=== PATIENT | female | born 1980 | race African-American/Black ===

== ENCOUNTER 2017-10-03 21:59 | Emergency (ER) | payer MEDICAID, OTHER ==
[~2017-10-03] VITALS: Ht 165.1 cm; Wt 93.0 kg
[~2017-10-03 21:59] MED LIST: ASPI-231 PO; ATEN-60 PO; DOCU-94 PO; HYDR50TA15 PO; OMEP20CA74 OR; SEVE800T8 PO; WARF5TAB71 PO
[2017-10-03] MEDS ORDERED: HYDROmorphone HCL 2 MG/ML VL IV ONE (23:45)
[2017-10-03] MEDS ORDERED: ONDANSETRON HCL 4 MG/2 ML VIAL IV ONE (23:45)
[2017-10-03 23:54] LABS: Hematocrit 31.6 % (36.0-46.0); Hemoglobin 9.6 g/dL (12.2-16.2); Mean Corpuscular Hgb Conc. 30.4 g/dL (32.0-36.0); Mean Corpuscular Volume 88.9 fL (80.0-100.0); Platelet Count (auto) 469 10^3/uL (140-450); Red Blood Cells 3.55 10^6/uL (4.0-5.20); Red Cell Distribution Width 20.9 % (11.8-14.3)
[2017-10-03 23:56] LABS: White Blood Cell 51.2 10^3/uL (4.4-10.8)
[2017-10-03 23:57] LABS: Band Neutrophils % (manual) 0; Basophils % (manual) 0 (0.0-2.0); Blast Cells 0; Eosinophils % (manual) 0 (0-7); Metamyelocytes % 0; Myelocytes % 0; Promyelocytes % 0; Reactive Lymphocytes 0
[2017-10-04 00:35] LABS: Lymphocytes % (manual) 4 (10.0-50.0); Monocytes % (manual) 3 (0-12)
[2017-10-04] MEDS ORDERED: IOHEXOL 350 MG/ML 100ML IJ ONE (00:45)
[2017-10-04 00:59] LABS: INR 1.05 (0.9-1.15); Partial Thromboplastin Time 29.4 sec (22.64-33.71); Prothrombin Time 11.4 sec (9.37-12.3)
[2017-10-04] MEDS ORDERED: SODIUM CHLORIDE 0.9% 1,000 ML IV ONE (02:15)
[2017-10-04] MEDS ORDERED: VANCOMYCIN 1GM/250ML 250 ML IV ONE (02:15)
[2017-10-04 02:43] LABS: Hematocrit 30.7 % (36.0-46.0); Hemoglobin 9.5 g/dL (12.2-16.2); Mean Corpuscular Hemoglobin 26.7 pg (28.0-32.0); Mean Corpuscular Hgb Conc. 30.9 g/dL (32.0-36.0); Mean Corpuscular Volume 86.3 fL (80.0-100.0); Platelet Count (auto) 615 10^3/uL (140-450); Red Blood Cells 3.56 10^6/uL (4.0-5.20)
[2017-10-04 02:52] LABS: Lactic Acid w/Reflex 3.3 mmol/L (0.4-2.0)
[2017-10-04] MEDS ORDERED: SODIUM CHLORIDE 0.9% 300 ML IV ONE (03:00)
[2017-10-04] MEDS ORDERED: cefTRIAXone 1GM/10ml IVPUSH 10 ML IV ONE (03:00)
[2017-10-04 03:01] LABS: Red Cell Distribution Width 20.9 % (11.8-14.3)
[2017-10-04 03:07] LABS: White Blood Cell 51.3 10^3/uL (4.4-10.8)
[2017-10-04 03:08] LABS: Basophils % (manual) 0 (0.0-2.0); Blast Cells 0; Eosinophils % (manual) 0 (0-7); Metamyelocytes % 0; Monocytes % (manual) 0 (0-12); Myelocytes % 0; Promyelocytes % 0; Reactive Lymphocytes 0
[2017-10-04 03:26] LABS: Alkaline Phosphatase 254 U/L (45-117); Anion Gap 23 (5-15); Aspartate Aminotransferase 21 U/L (15-37); Carbon Dioxide 20 mmol/L (21-32); Chloride 87 mmol/L (98-107); GFR African American 4 mL/min; GFR Non-African American 3 mL/min; Glucose 190 mg/dL (74-106); Potassium 3.7 mmol/L (3.5-5.1); Sodium 130 mmol/L (136-145)
[2017-10-04 03:27] LABS: Alanine Aminotransferase 10 U/L (13-56); Albumin 1.4 g/dL (3.4-5.0); Amylase 24 U/L (25-115); Bilirubin, Total 1.3 mg/dL (0.2-1.0); Calcium 8.4 mg/dL (8.5-10.1); Lipase 106 U/L (73-393); Magnesium 1.9 mg/dL (1.6-2.6); Total Protein 7.5 g/dL (6.4-8.2)
[2017-10-04 03:28] LABS: Blood Urea Nitrogen 80 mg/dL (7-18)
[2017-10-04 03:42] LABS: Band Neutrophils % (manual) 4; Lymphocytes % (manual) 2 (10.0-50.0)
[2017-10-04] MEDS ORDERED: SODIUM CHLORIDE 0.9% 500 ML IV ONE ×2 (04:30→05:00)
[2017-10-04] MEDS ORDERED: HYDROcodone-ACET 10/325MG TAB PO ONE (04:30)
[2017-10-04] MEDS ORDERED: CLINDAMYCIN 900MG IV 50 ML IV ONE (05:00)
[2017-10-04 05:41] VITALS: BP 100/56
== END 2017-10-04 05:49 | disposition home or self-care (01) ==
LOC: EDBD 21:59 → ER 21:59
DX: E11.52 Type 2 diabetes mellitus with diabetic peripheral angiopathy with gangrene (principal); I70.202 Unspecified atherosclerosis of native arteries of extremities, left leg; I70.201 Unspecified atherosclerosis of native arteries of extremities, right leg; K21.9 Gastro-esophageal reflux disease without esophagitis; I12.0 Hypertensive chronic kidney disease with stage 5 chronic kidney disease or end stage renal disease; N18.6 End stage renal disease; F17.210 Nicotine dependence, cigarettes, uncomplicated; I95.9 Hypotension, unspecified; E11.22 Type 2 diabetes mellitus with diabetic chronic kidney disease; Z79.82 Long term (current) use of aspirin; Z79.01 Long term (current) use of anticoagulants; Z99.2 Dependence on renal dialysis
CPT/HCPCS: 36415; 71045; 74177; 75635; 80053; 82150; 82962; 83605; 83690; 83735; 83880; 84484; 84702; 85007; 85027; 85610; 85730; 87040; 93005; 94761; 96361; 96365; 96367; 96375; 99285; J1170; J2405; J3370; J3490; J7030; Q9967

== ENCOUNTER 2019-02-04 21:48 | Emergency (ER) | payer MEDICAID ==
[~2019-02-04] VITALS: Ht 152.4 cm; Wt 117.9 kg
[2019-02-04 23:44] LABS: Basophils # (auto) 0 uL; Basophils % (auto) 0.8 % (0.0-2.0); Eosinophils # (auto) 0.2 uL; Eosinophils % (auto) 3.5 % (0.0-7.0); Hematocrit 32.7 % (36.0-46.0); Hemoglobin 10.4 g/dL (12.2-16.2); Lymphocytes % (auto) 21.7 % (10.0-50.0); Mean Corpuscular Hemoglobin 28.3 pg (28.0-32.0); Mean Corpuscular Hgb Conc. 31.9 g/dL (32.0-36.0); Mean Corpuscular Volume 88.7 fL (80.0-100.0); Monocytes # (auto) 0.4 uL; Monocytes % (auto) 7.6 % (0.0-12.0); Neutrophils # (auto) 3.2 uL; Neutrophils % (auto) 66.4 % (37.0-80.0); Nucleated Red Blood Cells % 0.1 %; Platelet Count (auto) 176 10^3/uL (140-450); Red Blood Cells 3.69 10^6/uL (4.0-5.20); White Blood Cell 4.8 10^3/uL (4.4-10.8)
[2019-02-04 23:58] LABS: Red Cell Distribution Width 20.8 % (11.8-14.3)
[2019-02-05 00:08] LABS: Albumin 2.8 g/dL (3.4-5.0); BUN/Creatinine Ratio 6.4; Calcium 9.2 mg/dL (8.5-10.1); Magnesium 1.9 mg/dL (1.6-2.6); Potassium 3.5 mmol/L (3.5-5.1)
[2019-02-05] MEDS ORDERED: LORazepam 0.5 MG TAB PO ONE (00:15)
[2019-02-05 00:23] LABS: Total Protein 9.2 g/dL (6.4-8.2)
[2019-02-05] MEDS ORDERED: MORPHINE SULFATE 4 MG/ML SYR/VIAL IV ONE (07:45)
[2019-02-05] MEDS ORDERED: diphenhdrAMINE HCL 50 MG/1 ML VL IV ONE (07:45)
[2019-02-05] MEDS ORDERED: ONDANSETRON HCL 4 MG/2 ML VIAL IV ONE (07:45)
[2019-02-05 12:30] VITALS: BP 115/76
== END 2019-02-05 13:57 | disposition home or self-care (01) ==
LOC: EDBD 21:48 → EDUNIT# 21:48 → ER 21:50
DX: T78.40XA Allergy, unspecified, initial encounter (principal); E11.22 Type 2 diabetes mellitus with diabetic chronic kidney disease; I12.0 Hypertensive chronic kidney disease with stage 5 chronic kidney disease or end stage renal disease; N18.6 End stage renal disease; F17.210 Nicotine dependence, cigarettes, uncomplicated; Z79.82 Long term (current) use of aspirin; Z79.01 Long term (current) use of anticoagulants; Z89.512 Acquired absence of left leg below knee; Z89.511 Acquired absence of right leg below knee; X58.XXXA Exposure to other specified factors, initial encounter
CPT/HCPCS: 36415; 80053; 83690; 83735; 84702; 85025; 93005; 96374; 96375; 99284; J1200; J2270; J2405; J7030